=== PATIENT | female | born 1980 | race Caucasian/White ===

== ENCOUNTER → 2018-11-04 | Outpatient (CLI) | payer BC ==
[~2018-11-04] MED LIST: FERR-46 PO
== END | disposition home or self-care (01) ==
LOC: STAR 08:46
PROVIDERS: ATTEND Orthopaedic Surgery
DX: Z02.9 Encounter for administrative examinations, unspecified (principal)

== ENCOUNTER 2018-11-12 10:06 | Day surgery (SDC) | payer BC ==
[~2018-11-12] VITALS: Ht 170.2 cm; Wt 62.8 kg
[2018-11-12] MEDS ORDERED: LACTATED RINGERS 1,000 ML IV SCH (10:29)
[2018-11-12 10:55] LABS: HCG UR SG 1.004 (1.003-1.030)
[2018-11-12] MEDS ORDERED: ONDANSETRON ODT 8 MG PO ONE (11:00)
[2018-11-12] MEDS ORDERED: GABAPENTIN 300 MG CAPSULE PO ONE (11:00)
[2018-11-12] MEDS ORDERED: ACETAMINOPHEN 500 MG TABLET PO ONE (11:00)
[2018-11-12] MEDS ORDERED: DIAZEPAM 5 MG TABLET PO ONE (11:00)
[2018-11-12] MEDS ORDERED: MIDAZOLAM 1 MG/ML, 2ML ONE (11:38)
[2018-11-12] MEDS ORDERED: FENTANYL PF 100 MCG/2ML ONE (11:38)
[2018-11-12] MEDS ORDERED: LIDOCAINE 1%-EPI 1:100K, 30ML ONE (12:30)
[2018-11-12] MEDS ORDERED: LIDOCAINE 1%-EPI 1:100K, 30ML INFIL ONE (13:39)
[2018-11-12] MEDS ORDERED: BUPIVACAINE/PF 0.5% ONE (13:40)
[2018-11-12] MEDS ORDERED: LIDOCAINE-MPF 2% ,5ML ONE (13:40)
[2018-11-12] MEDS ORDERED: CEFAZOLIN 1,000 MG ONE (13:41)
[2018-11-12] MEDS ORDERED: DEXAMETHASONE 4 MG/ML, 1ML ONE (13:41)
[2018-11-12] MEDS ORDERED: PROPOFOL 10 MG/ML, 20ML ONE (13:41)
[2018-11-12] MEDS ORDERED: FENTANYL PF 100 MCG/2ML IV PRN (14:00)
[2018-11-12] MEDS ORDERED: HYDROmorphone 2 MG/ML, 1ML IVPush PRN (14:00)
[2018-11-12] MEDS ORDERED: LABETALOL 5MG/ML, 20ML IV PRN (14:00)
[2018-11-12] MEDS ORDERED: PROMETHAZINE 25 MG/ML, 1ML IV PRN (14:00)
[2018-11-12] MEDS ORDERED: OXYcodone 5 MG/5 ML ORAL.SOL UDC PO PRN (14:00)
[2018-11-12] MEDS ORDERED: ALBUTEROL/IPRATROPIUM 2.5MG/0.5MG, 3 ML NPPB PRN (14:00)
[2018-11-12] MEDS ORDERED: MIDAZOLAM 1 MG/ML, 2ML IV PRN (14:00)
[2018-11-12] MEDS ORDERED: SCOPOLAMINE PATCH, 1.5MG PATCH.TD72 TD PRN (14:00)
[2018-11-12] MEDS ORDERED: hydrALAzine 20 MG/ML, 1ML IV PRN (14:00)
[2018-11-12] MEDS ORDERED: ONDANSETRON 2MG/ML, 2ML IV PRN (14:00)
[2018-11-12] MEDS ORDERED: MEPERIDINE/PF 25MG/0.5ML IVPush PRN (14:00)
== END 2018-11-12 15:35 | disposition home or self-care (01) ==
LOC: OUT 10:06
PROVIDERS: ATTEND Orthopaedic Surgery
DX: S83.232A Complex tear of medial meniscus, current injury, left knee, initial encounter (principal); S83.282A Other tear of lateral meniscus, current injury, left knee, initial encounter; M65.862 Other synovitis and tenosynovitis, left lower leg; M94.262 Chondromalacia, left knee; D64.9 Anemia, unspecified; X58.XXXA Exposure to other specified factors, initial encounter; Y93.89 Activity, other specified; Y92.89 Other specified places as the place of occurrence of the external cause; Y99.8 Other external cause status
CPT/HCPCS: 29880; 64447; 81025; J0690; J1100; J2250; J2704; J3010; J3490; J7120; Q0162